=== PATIENT | male | born 1985 | race African-American/Black ===

== ENCOUNTER 2016-03-28 23:43 | Emergency (ER) | payer SELFPAY ==
[~2016-03-28] VITALS: Ht 190.5 cm; Wt 131.5 kg
[~2016-03-28 23:43] MED LIST: ALBUTEROL INHALER; ALBUTEROL0.09 MG/A2 IH; AMOXICILLIN500 MG PO; AUGMENTIN 875 M1 TAB PO; BACTRIM DS 8001 TA1 PO; CLARITIN10 MG PO; COMBIVENT1 ARO IH; MEDROL DOSEPAK4 MG PO; NAPROSYN500 MG PO; NAPROXEN375 MG PO; NO DAILY MEDS; PERCOCET 325 MG1 TA2 PO; PREDNICOT20 MG PO; PREDNISONE10 M1 PO; PREDNISONE10 MG PO; PROVENTIL0.09 MG/AC IH; SEPTRA DS 800 M1 TAB PO; VIBRAMYCIN100 MG PO; VICODIN 5/500 505 MG PO; ZITHROMAX Z PA250 MG PO
[2016-03-28] MEDS ORDERED: PROVENTIL0.09 MG/A1 INH (23:59)
[2016-03-28] MEDS ORDERED: PREDNISONE10 MG PO (23:59)
== END 2016-03-29 00:36 | disposition home or self-care (01) ==
LOC: ED 23:43
DX: J45.21 Mild intermittent asthma with (acute) exacerbation (principal); F17.200 Nicotine dependence, unspecified, uncomplicated

== ENCOUNTER 2016-08-17 02:24 | Emergency (ER) | payer OTHER ==
[~2016-08-17] VITALS: Ht 190.5 cm; Wt 126.1 kg
[~2016-08-17 02:24] MED LIST changes: +PROVENTIL0.09 MG/A1 INH
[2016-08-17] MEDS ORDERED: PROAIR HFA8.5 GM INH (02:42)
[2016-08-17] MEDS ORDERED: PREDNISONE50 MG PO (02:42)
== END 2016-08-17 03:59 | disposition home or self-care (01) ==
LOC: ED 02:24
DX: J45.901 Unspecified asthma with (acute) exacerbation (principal)

== ENCOUNTER 2016-08-28 03:23 | Emergency (ER) | payer OTHER ==
[~2016-08-28] VITALS: Ht 190.5 cm; Wt 127.0 kg
[~2016-08-28 03:23] MED LIST changes: +PREDNISONE50 MG PO; +PROAIR HFA8.5 GM INH
[2016-08-28] MEDS ORDERED: PREDNISONE50 MG PO (04:02)
[2016-08-28] MEDS ORDERED: PROVENTIL0.09 MG/A1 INH (04:02)
== END 2016-08-28 05:03 | disposition home or self-care (01) ==
LOC: ED 03:23
DX: J45.901 Unspecified asthma with (acute) exacerbation (principal)

== ENCOUNTER 2016-09-11 07:29 | Emergency (ER) | payer OTHER ==
[~2016-09-11] VITALS: Wt 122.5 kg
[2016-09-11] MEDS ORDERED: PREDNISONE20 M1 PO (08:26)
== END 2016-09-11 08:31 | disposition home or self-care (01) ==
LOC: ED 07:29
DX: J45.901 Unspecified asthma with (acute) exacerbation (principal); F17.200 Nicotine dependence, unspecified, uncomplicated

== ENCOUNTER 2017-07-25 02:38 | Emergency (ER) | payer OTHER ==
[~2017-07-25] VITALS: Ht 193 cm; Wt 128.8 kg
[~2017-07-25 02:38] MED LIST changes: +PREDNISONE20 M1 PO
[2017-07-25] MEDS ORDERED: PERCOCET 5-3251 EACH PO (03:01)
[2017-07-25] MEDS ORDERED: CLINDAMYCIN HC300 MG PO (03:01)
[2017-07-25] MEDS ORDERED: CLINDAMYCIN150 MG PO (03:03)
== END 2017-07-25 03:15 | disposition home or self-care (01) ==
LOC: ED 02:38
DX: L02.411 Cutaneous abscess of right axilla (principal); L73.2 Hidradenitis suppurativa; J45.909 Unspecified asthma, uncomplicated; Z79.899 Other long term (current) drug therapy

== ENCOUNTER 2017-08-10 08:24 | Emergency (ER) | payer OTHER ==
[~2017-08-10] VITALS: Ht 190.5 cm; Wt 126.1 kg
[~2017-08-10 08:24] MED LIST changes: +CLINDAMYCIN HC300 MG PO; +CLINDAMYCIN150 MG PO; +PERCOCET 5-3251 EACH PO
[2017-08-10] MEDS ORDERED: PROVENTIL HFA6.7 GM INH ×2 (08:28→09:14)
[2017-08-10 08:52] LABS: BASO # 0.1 10*3/uL (0.0-0.1); BASO % 0.9 % (0.0-1.0); EOS # 0.4 10*3/uL (0.0-0.4); EOS % 4.3 % (1.0-4.0); HEMATOCRIT 45.2 % (42.0-52.0); HEMOGLOBIN 15.4 g/dl (14.0-18.0); LYMPH # 2.7 10*3/uL (1.3-4.4); MEAN CELL VOLUME 89.7 fl (80.0-94.0); MEAN CORPUSCULAR HGB 30.6 pg (27.0-31.0); MEAN CORPUSCULAR HGB CONC 34.1 g/dl (33.0-37.0); MEAN PLATELET VOLUME 10.5 fl (9.6-12.3); MONO # 0.8 10*3/uL (0.1-1.0); MONO % 8.3 % (3.0-9.0); NEUT # 5.7 10*3/uL (2.3-7.9); NEUT % 58.1 % (47.0-73.0); PLATELET COUNT AUTOMATED 249 10*3/uL (130-400); RED BLOOD COUNT 5.04 10*6/uL (4.50-5.90); WHITE BLOOD COUNT 9.8 10*3/uL (4.8-10.8)
[2017-08-10 09:08] LABS: ALBUMIN 3.7 gm/dl (3.1-4.5); ALKALINE PHOSPHATASE 68 U/L (45-117); BUN 9 mg/dl (7-24); CHLORIDE 108 mmol/L (98-107); CREATININE 0.98 mg/dL (0.70-1.30); POTASSIUM 3.5 mmol/L (3.5-5.1); SGOT/AST 48 IU/L (3-35); SGPT/ALT 33 U/L (12-78); SODIUM 140 mmol/L (136-145); TOTAL PROTEIN 7.6 gm/dL (6.4-8.2)
[2017-08-10] MEDS ORDERED: ZITHROMAX250 MG PO (09:14)
[2017-08-10] MEDS ORDERED: PREDNISONE20 M1 PO (09:14)
== END 2017-08-10 09:11 | disposition home or self-care (01) ==
LOC: ED 08:24
PROVIDERS: Student in an Organized Health Care Education/Training Program
DX: J45.901 Unspecified asthma with (acute) exacerbation (principal); Z79.899 Other long term (current) drug therapy

== ENCOUNTER 2017-08-18 21:48 | Emergency (ER) | payer OTHER ==
[~2017-08-18] VITALS: Ht 190.5 cm; Wt 127.0 kg
[~2017-08-18 21:48] MED LIST changes: +PROVENTIL HFA6.7 GM INH; +ZITHROMAX250 MG PO
[2017-08-18] MEDS ORDERED: Veetids,V-Cill500 MG PO (22:13)
[2017-08-18] MEDS ORDERED: MOBIC7.5 MG PO (22:13)
== END 2017-08-18 22:15 | disposition home or self-care (01) ==
LOC: ED 21:48
DX: K02.9 Dental caries, unspecified (principal); F17.200 Nicotine dependence, unspecified, uncomplicated

== ENCOUNTER 2018-01-01 09:28 | Emergency (ER) | payer OTHER ==
[~2018-01-01] VITALS: Wt 127.0 kg
[~2018-01-01 09:28] MED LIST changes: +MOBIC7.5 MG PO; +Veetids,V-Cill500 MG PO
== END 2018-01-01 11:07 | disposition home or self-care (01) ==
LOC: ED 09:28
DX: H10.9 Unspecified conjunctivitis (principal); H61.23 Impacted cerumen, bilateral; J45.909 Unspecified asthma, uncomplicated; Z79.899 Other long term (current) drug therapy

== ENCOUNTER 2018-03-22 | Emergency (ER) | payer OTHER | END 2018-03-22 14:04 | disposition home or self-care (01) | DX: S56.011A Strain of flexor muscle, fascia and tendon of right thumb at forearm level, initial encounter (principal); Z79.899 Other long term (current) drug therapy; W51.XXXA Accidental striking against or bumped into by another person, initial encounter; Y93.89 Activity, other specified; Y92.89 Other specified places as the place of occurrence of the external cause; Y99.8 Other external cause status ==

== ENCOUNTER 2018-09-29 22:58 | Emergency (ER) | payer OTHER ==
[~2018-09-29] VITALS: Ht 190.5 cm; Wt 123.4 kg
[2018-09-30] MEDS ORDERED: DOXYCYCLINE100 M3 PO (00:08)
== END 2018-09-30 00:55 | disposition home or self-care (01) ==
LOC: ED 22:58
DX: L02.412 Cutaneous abscess of left axilla (principal); J45.909 Unspecified asthma, uncomplicated

== ENCOUNTER 2021-06-04 12:58 | Emergency (ER) | payer OTHER ==
[~2021-06-04] VITALS: Ht 190.5 cm; Wt 127.0 kg
[~2021-06-04 12:58] MED LIST changes: +DOXYCYCLINE100 M3 PO
[2021-06-04 13:47] LABS: BASO # 0.1 10*3/uL (0.0-0.1); BASO % 0.7 % (0.0-1.0); EOS # 0.1 10*3/uL (0.0-0.4); HEMATOCRIT 49.5 % (42.0-52.0); LYMPH # 2.5 10*3/uL (1.3-4.4); LYMPH % 19.9 % (27.0-41.0); MEAN CELL VOLUME 93.2 fl (80.0-94.0); MEAN CORPUSCULAR HGB 31.6 pg (27.0-31.0); MEAN CORPUSCULAR HGB CONC 33.9 g/dl (33.0-37.0); MEAN PLATELET VOLUME 10.6 fl (9.6-12.3); MONO # 0.9 10*3/uL (0.1-1.0); MONO % 7.2 % (3.0-9.0); NEUT # 8.7 10*3/uL (2.3-7.9); NEUT % 70.8 % (47.0-73.0); PLATELET COUNT AUTOMATED 208 10*3/uL (130-400); RED BLOOD COUNT 5.31 10*6/uL (4.50-5.90); RED CELL DISTRI WIDTH 12.5 % (0-14.5); WHITE BLOOD COUNT 12.3 10*3/uL (4.8-10.8)
[2021-06-04 13:58] LABS: ACT PARTIAL THROMBO TIME 27.2 SECONDS (20.0-32.1)
[2021-06-04 14:05] LABS: ALKALINE PHOSPHATASE 75 U/L (45-117); BUN 9 mg/dl (7-24); CHLORIDE 106 mmol/L (98-107); CREATININE 0.94 mg/dL (0.70-1.30); LIPASE 154 U/L (73-393); POTASSIUM 4.1 mmol/L (3.5-5.1); SGOT/AST 14 IU/L (3-35); SGPT/ALT 24 U/L (12-78); SODIUM 140 mmol/L (136-145)
[2021-06-04] MEDS ORDERED: VIBRA-TAB100 MG PO (15:13)
== END 2021-06-04 14:51 | disposition home or self-care (01) ==
LOC: ED 12:58
PROVIDERS: Emergency Medicine
DX: L02.11 Cutaneous abscess of neck (principal); R07.9 Chest pain, unspecified; Z79.899 Other long term (current) drug therapy

== ENCOUNTER 2021-06-21 23:28 | Emergency (ER) | payer OTHER ==
[~2021-06-21] VITALS: Ht 190.5 cm; Wt 108.9 kg
[~2021-06-21 23:28] MED LIST changes: +VIBRA-TAB100 MG PO
== END 2021-06-22 00:30 | disposition home or self-care (01) ==
LOC: ED 23:28
DX: S92.311A Displaced fracture of first metatarsal bone, right foot, initial encounter for closed fracture (principal); Z79.899 Other long term (current) drug therapy; F17.200 Nicotine dependence, unspecified, uncomplicated; W22.8XXA Striking against or struck by other objects, initial encounter; Y93.89 Activity, other specified; Y92.89 Other specified places as the place of occurrence of the external cause; Y99.8 Other external cause status

== ENCOUNTER → 2021-12-19 | Outpatient (CLI) | payer OTHER ==
[2021-12-19 12:15] LABS: HEMATOCRIT 49.5 % (42.0-52.0); MEAN CELL VOLUME 93.4 fl (80.0-94.0); MEAN CORPUSCULAR HGB 32.3 pg (27.0-31.0); MEAN CORPUSCULAR HGB CONC 34.5 g/dl (33.0-37.0); MEAN PLATELET VOLUME 10.9 fl (9.6-12.3); RED BLOOD COUNT 5.3 10*6/uL (4.50-5.90); RED CELL DISTRI WIDTH 12.3 % (0-14.5); WHITE BLOOD COUNT 8.6 10*3/uL (4.8-10.8)
[2021-12-19 12:33] LABS: ALKALINE PHOSPHATASE 58 U/L (45-117); BUN 10 mg/dl (7-24); CHLORIDE 109 mmol/L (98-107); CHOLESTEROL 177 mg/dL (<200); CREATININE 0.83 mg/dL (0.70-1.30); GAMMA GLUTAMYL TRANSPEPTIDASE 53 U/L (15-85); LDL CHOLESTEROL 107 mg/dL (9-159); POTASSIUM 4.2 mmol/L (3.5-5.1); SGOT/AST 14 IU/L (3-35); SGPT/ALT 27 U/L (12-78); SODIUM 138 mmol/L (136-145); TOTAL PROTEIN 8.1 gm/dL (6.4-8.2); TRIGLYCERIDES 211 mg/dl (<150)
[2021-12-19 12:55] LABS: VITAMIN D, 25-HYDROXY 9.8 ng/mL (30-100)
[2021-12-20 07:06] LABS: HBSAG Negative (Negative); HEP B CORE AB, IGM Negative (Negative); HEPATITIS C ANTIBODY <0.1 (0.0-0.9)
== END | disposition home or self-care (01) ==
LOC: LAB 11:28
PROVIDERS: ATTEND Family Medicine
DX: Z00.00 Encounter for general adult medical examination without abnormal findings (principal); R74.01 Elevation of levels of liver transaminase levels; E55.9 Vitamin D deficiency, unspecified; R53.83 Other fatigue; F17.200 Nicotine dependence, unspecified, uncomplicated; J45.909 Unspecified asthma, uncomplicated

== ENCOUNTER 2022-08-22 17:14 | Emergency (ER) | payer SELFPAY ==
[~2022-08-22] VITALS: Ht 190.5 cm; Wt 127.5 kg
[2022-08-22] MEDS ORDERED: VIBRAMYCIN100 MG PO (17:50)
== END 2022-08-22 18:02 | disposition home or self-care (01) ==
LOC: ED 17:14
DX: L73.2 Hidradenitis suppurativa (principal); J45.909 Unspecified asthma, uncomplicated; Z98.890 Other specified postprocedural states; Z87.891 Personal history of nicotine dependence

== ENCOUNTER 2023-07-21 03:48 | Emergency (ER) | payer MEDICAID ==
[~2023-07-21] VITALS: Ht 190.5 cm; Wt 127.0 kg
[2023-07-21] MEDS ORDERED: AMOXICILLIN500 M2 PO (04:36)
[2023-07-21] MEDS ORDERED: AMOXICILLIN 500 MG CAP PO ONE (04:40)
[2023-07-21] MEDS ORDERED: IBUPROFEN 600 MG TAB PO ONE (04:40)
== END 2023-07-21 05:30 | disposition home or self-care (01) ==
LOC: ED 03:48
DX: J02.9 Acute pharyngitis, unspecified (principal); H66.92 Otitis media, unspecified, left ear; J45.909 Unspecified asthma, uncomplicated; Z98.890 Other specified postprocedural states

== ENCOUNTER 2024-05-06 18:30 | Emergency (ER) | payer SELFPAY ==
[~2024-05-06] VITALS: Ht 193 cm; Wt 127.0 kg
[~2024-05-06 18:30] MED LIST changes: +AMOXICILLIN500 M2 PO
[2024-05-06] MEDS ORDERED: Ketorolac Tromethamine 60 MG/2 ML VIAL IM ONE (21:00)
== END 2024-05-06 21:56 | disposition home or self-care (01) ==
LOC: ED 18:30
DX: B34.9 Viral infection, unspecified (principal); Z20.822 Contact with and (suspected) exposure to COVID-19; J45.909 Unspecified asthma, uncomplicated

== ENCOUNTER 2024-09-01 14:23 | Emergency (ER) | payer SELFPAY ==
[~2024-09-01] VITALS: Wt 127.0 kg
[2024-09-01] MEDS ORDERED: Ketorolac Tromethamine 30 MG/ML VIAL IM ONE (15:00)
[2024-09-01] MEDS ORDERED: ZANAFLEX4 MG PO (16:00)
[2024-09-01] MEDS ORDERED: NAPROSYN500 MG PO (16:00)
[2024-09-01] MEDS ORDERED: VENT7GM INH (16:00)
== END 2024-09-01 16:28 | disposition home or self-care (01) ==
LOC: ED 14:23
DX: S80.02XA Contusion of left knee, initial encounter (principal); J45.909 Unspecified asthma, uncomplicated; Z76.0 Encounter for issue of repeat prescription; V04.00XA Pedestrian on foot injured in collision with heavy transport vehicle or bus in nontraffic accident, initial encounter; Y93.01 Activity, walking, marching and hiking; Y92.488 Other paved roadways as the place of occurrence of the external cause; Y99.8 Other external cause status